=== PATIENT | female | born 1980 | race American Indian/Alaskan Native ===

== ENCOUNTER 2017-10-04 20:44 | Emergency (ER) | payer MEDICAID ==
[2017-10-04 20:46] VITALS: BMI 34.2
[2017-10-04 20:49] VITALS: BP 148/85; PULSE 100; RESP 16; TEMP 96.7; O2SAT 100
--- NOTE | 2017-10-04 20:58 | ED PDOC ---
Lower Extremity Pain/Injury Time Seen by Provider: 10/04/17 20:57 Chief Complaint (Nursing): Lower Extremity Problem/Injury Chief Complaint (Provider): Left foot pain History Per: Patient History/Exam Limitations: no limitations Onset/Duration Of Symptoms: Days Current Symptoms Are (Timing): Still Present Additional Complaint(s): 36 y/o female presents to the emergency department with a complaint of a right foot pain and swelling that radiates up to the knee whenever extra pressure is applied x3 weeks. Reports pain is on and off and occurs once in a while but worsened this time around. States she takes Ibuprofen with minimal relief. Denies any further medical complaints. Of note, patient had right foot surgery in 2008. Surgeon: Dr. Keith Herrera MD Past Medical History Reviewed: Historical Data, Nursing Documentation, Vital Signs Vital Signs: Last Vital Signs Temp 96.7 F L 10/04/17 20:46 Pulse 100 H 10/04/17 20:46 Resp 16 10/04/17 20:46 BP 148/85 10/04/17 20:46 Pulse Ox 100 10/04/17 20:46 - Medical History Other PMH: Lupus - Surgical History Surgical History: No Surg Hx - Family History Family History: States: No Known Family Hx - Home Medications Home Medications: Ambulatory Orders Medication Instructions Recorded [place]/Ca/Cu/mg/Mn/Sodium/Vit 1 tab PO BID 09/30/15 [Os-Parrish Ultra 600+D] Famotidine [Pepcid] 20 mg PO BID #30 tab 09/30/15 Montelukast [Singulair] 10 mg PO DAILY 09/30/15 Naproxen 500 mg PO BID #20 tab 09/30/15 Omeprazole Magnesium [Prilosec Otc] 20 mg PO DAILY 09/30/15 Oxycodone HCl/Acetaminophen 1 tab PO Q6 PRN #12 tab 09/30/15 [Percocet 325 mg-5 mg] Albuterol HFA [Ventolin HFA 90 1 - 2 puff IH Q6 PRN #1 inhaler 12/27/15 mcg/actuation (8 g)] Azithromycin [Zithromax Z-[place]] 250 mg PO DAILY #1 pkg 12/27/15 Promethazine HCl/Codeine 10 ml PO Q6 PRN #6 oz 12/27/15 [Prometh-Codein 6.25-10 mg/5 ml] Tramadol HCl [Ultram] 50 mg PO Q6 #15 tab 10/04/17 - Allergies Allergies/Adverse Reactions: Allergies Allergy/AdvReac Type Severity Reaction Status Date / Time No Known Allergies Allergy Verified 10/04/17 20:46 Review of Systems ROS Statement: Except As Marked, All Systems Reviewed And Found Negative (As per HPI, otherwise negative) Musculoskeletal: Positive for: Foot Pain (Right ) Physical Exam - Reviewed Nursing Documentation Reviewed: Yes Vital Signs Reviewed: Yes - Physical Exam Appears: Positive for: Non-toxic, No Acute Distress Head Exam: Positive for: ATRAUMATIC, NORMAL INSPECTION, NORMOCEPHALIC Skin: Positive for: Normal Color, Warm, Dry Extremity: Positive for: Normal ROM (Full range of motion of the left foot), Tenderness (To the malleolus bilaterally. Mild tenderness noted to the dorsum region of the foot. ), Capillary Refill (Good pulses. Neurovascularly intact. ) , Swelling (To the malleolus bilaterally). Negative for: Other (No color changes noted. No tenderness noted to the plantar region of the foot. No fibular head pain noted. ) Neurologic/Psych: Positive for: Alert, Oriented (x3) - ECG O2 Sat by Pulse Oximetry: 100 (RA) Pulse Ox Interpretation: Normal Medical Decision Making Medical Decision Making: Time: 2055 Initial impression: Left foot pain status post foot surgery Initial plan: --Right foot x-ray --Right ankle x-ray --Reevaluation Time: 2119 --X-ray read by me: shows surgical hardware (screw) with mild swelling to the foot but no acute injuries. podiatry consulted-pt to f.u in clinic tomorrow,pt placed nonweght bearing and crutches with GEOFF wrap and surgical shoe. Scribe Attestation: Documented by Marion Hernandez, acting as a scribe for Brittani Paige PA-C Provider Scribe Attestation: All medical record entries made by the Scribe were at my direction and personally dictated by me. I have reviewed the chart and agree that the record accurately reflects my personal performance of the history, physical exam, medical decision making, and the department course for this patient. I have also personally directed, reviewed, and agree with the discharge instructions and disposition. Disposition - Clinical Impression Clinical Impression: Ankle injury - Patient ED Disposition Is Patient to be Admitted: No Counseled Patient/Family Regarding: Studies Performed, Diagnosis, Need For Followup, Rx Given - Disposition Referrals: Podiatry Clinic [Outside] Disposition: Routine/Home Disposition Time: 21:27 Condition: STABLE Prescriptions: Tramadol HCl [Ultram] 50 mg PO Q6 #15 tab Instructions: Ankle Exercises (GEN), Tendinitis (ED) Forms: [facility] ED School/Work Excuse
--- NOTE | 2017-10-05 13:16 | RAD ---
PROCEDURE: Right Foot Radiographs. HISTORY: Unspecified injury COMPARISON: 06/21/2010 FINDINGS: BONES: No acute fracture. No evidence of orthopedic hardware failure. JOINTS: Normal. SOFT TISSUES: Normal. OTHER FINDINGS: None. IMPRESSION: No significant interval change compared to the prior examination(s).
--- NOTE | 2017-10-05 13:17 | RAD ---
PROCEDURE: Right Ankle Radiographs. HISTORY: Unspecified injury COMPARISON: 06/21/2010 FINDINGS: BONES: No acute fractures. No evidence of orthopedic hardware failure. JOINTS: Normal. No osteoarthritis. Ankle mortise maintained. Talar dome intact SOFT TISSUES: Normal. OTHER FINDINGS: None. IMPRESSION: No acute findings related to/accounting for the clinical presentation.No significant interval change compared to the prior examination(s).
== END 2017-10-04 22:25 | disposition home or self-care (01) ==
LOC: H.ER 20:44
DX: M25.571 Pain in right ankle and joints of right foot (principal); M32.9 Systemic lupus erythematosus, unspecified

== ENCOUNTER 2018-10-16 01:41 | Emergency (ER) | payer MEDICAID ==
[2018-10-16 01:41] VITALS: BMI 34.2
[2018-10-16 02:01] VITALS: RESP 18; O2SAT 98
[2018-10-16] MEDS ORDERED: Sodium Chloride 0.9% 1,000 ML IV STA (02:32)
--- NOTE | 2018-10-16 03:05 | ED PDOC ---
History of Present Illness History of Present Illness: 37 y/o female with history of lupus disease and chronic bronchitis presents to ER for evaluation of worsening flu-like symptoms onset 2 days. Patient reports symptoms started as achy legs and spread to whole body. She complains of associated headache, mild cough and light headedness. Patient received flu vaccine and states she takes her medication as prescribed. She denies any sick contact and reports allergies to sea food, cats and dogs. PMD: Steve Fernandez HPI: Influenza Time Seen by Provider: 10/16/18 02:04 Chief Complaint: Flu-like Symptoms Chief Complaint (Provider): Flu-like Symptoms History Per: Patient Exam Limitations: no limitations Onset/Duration Of Symptoms: Days (x2) Symptoms include: headache, bodyaches, cough, other (Light headedness) Past Medical History Reviewed: Historical Data, Nursing Documentation, Vital Signs Vital Signs: Last Vital Signs Temp 98.7 F 10/16/18 01:58 Pulse 97 H 10/16/18 01:58 Resp 18 10/16/18 01:58 BP 115/74 10/16/18 01:58 Pulse Ox 98 10/16/18 01:58 CEASAR Report Viewed: Yes - Medical History PMH: Bronchitis Other PMH: Lupus disease - Surgical History Surgical History: No Surg Hx - Family History Family History: States: Unknown Family Hx - Social History Current smoker - smoking cessation education provided: Yes Alcohol: None Drugs: Denies - Home Medications Home Medications: Ambulatory Orders Medication Instructions Recorded [place]/Ca/Cu/mg/Mn/Sodium/Vit 1 tab PO BID 09/30/15 [Os-Parrish Ultra 600+D] Famotidine [Pepcid] 20 mg PO BID #30 tab 09/30/15 Montelukast [Singulair] 10 mg PO DAILY 09/30/15 Naproxen 500 mg PO BID #20 tab 09/30/15 Omeprazole Magnesium [Prilosec Otc] 20 mg PO DAILY 09/30/15 Oxycodone HCl/Acetaminophen 1 tab PO Q6 PRN #12 tab 09/30/15 [Percocet 325 mg-5 mg] Albuterol HFA [Ventolin HFA 90 1 - 2 puff IH Q6 PRN #1 inhaler 12/27/15 mcg/actuation (8 g)] Azithromycin [Zithromax Z-[place]] 250 mg PO DAILY #1 pkg 12/27/15 Promethazine HCl/Codeine 10 ml PO Q6 PRN #6 oz 12/27/15 [Prometh-Codein 6.25-10 mg/5 ml] Tramadol HCl [Ultram] 50 mg PO Q6 #15 tab 10/04/17 - Allergies Allergies/Adverse Reactions: Allergies Allergy/AdvReac Type Severity Reaction Status Date / Time cat dander Allergy CONGESTION Verified 10/16/18 02:03 shellfish derived Allergy ANGIOEDEMA Verified 10/16/18 02:02 Review of Systems ROS Statement: Except As Marked, All Systems Reviewed And Found Negative Constitutional: Positive for: Other (Bodyache) Cardiovascular: Positive for: Light Headedness Respiratory: Positive for: Cough (mild) Neurological: Positive for: Headache Physical Exam - Reviewed Nursing Documentation Reviewed: Yes Vital Signs Reviewed: Yes - Physical Exam Appears: Positive for: Non-toxic, No Acute Distress Head Exam: Positive for: ATRAUMATIC, NORMOCEPHALIC Skin: Positive for: Normal Color, Warm, Dry Eye Exam: Positive for: Normal appearance, EOMI, PERRL ENT: Positive for: Normal ENT Inspection. Negative for: Pharyngeal Erythema Neck: Positive for: Normal, Painless ROM, Supple Cardiovascular/Chest: Positive for: Regular Rate, Rhythm. Negative for: Murmur Respiratory: Positive for: Normal Breath Sounds. Negative for: Wheezing Gastrointestinal/Abdominal: Positive for: Normal Exam, Soft. Negative for: Tenderness Back: Positive for: Normal Inspection. Negative for: L CVA Tenderness, R CVA Tenderness Extremity: Positive for: Normal ROM. Negative for: Pedal Edema, Deformity Neurologic/Psych: Positive for: Alert, Oriented (x3) Medical Decision Making Medical Decision Making: Time: 225 A/P: workup for viral illness vs. URI --Labs --CXR --IV fluids --Toradol --Reassess patient 0617 CXR shows no active disease. Labs are within normal limits. Influenza negative. Patient is stable for discharge home. Will give 2 days absence note for work. ----- Scribe Attestation: Documented by Myriam Smith, acting as a scribe for Kary Schmidt MD. Provider Scribe Attestation: All medical record entries made by the Scribe were at my direction and personally dictated by me. I have reviewed the chart and agree that the record accurately reflects my personal performance of the history, physical exam, medical decision making, and the department course for this patient. I have also personally directed, reviewed, and agree with the discharge instructions and di sposition. - Laboratory Results Result Diagrams: 10/16/18 02:51 10/16/18 02:51 - ECG O2 Sat by Pulse Oximetry: 98 (RA) Pulse Ox Interpretation: Normal Disposition - Clinical Impression Clinical Impression: Viral upper respiratory illness - Patient ED Disposition Is Patient to be Admitted: No - Disposition Disposition: Routine/Home Disposition Time: 06:17 Condition: STABLE Forms: [facility] (Cuban)
[2018-10-16 04:30] LABS: BASO # 0.1 K/uL (0.0-0.2); BASO % 0.8 % (0.0-2.0); EOS # 0.2 K/uL (0.0-0.7); EOS % 3.1 % (0.0-4.0); HEMOGLOBIN 13.4 g/dL (12.0-16.0); LYMPH # 2.9 K/uL (1.0-4.3); LYMPH % 44.9 % (20.0-40.0); MEAN CELL VOLUME 92.9 fl (81.0-99.0); MEAN CORPUSCULAR HEMOGLOBIN 30.1 pg (27.0-31.0); MEAN CORPUSCULAR HGB CONC 32.4 g/dL (33.0-37.0); MEAN PLATELET VOLUME 7.5 fl (7.2-11.7); MONO # 0.5 K/uL (0.0-0.8); MONO % 7.1 % (0.0-10.0); NEUT # 2.9 K/uL (1.8-7.0); NEUT % 44.1 % (50.0-75.0); NRBC % 0.1 % (0.0-0.0); RBC 4.46 Mil/uL (3.80-5.20); RED CELL DISTRIBUTION WIDTH 14.3 % (11.5-14.5); WHITE BLOOD COUNT 6.5 K/uL (4.8-10.8)
[2018-10-16 04:41] LABS: BLOOD UREA NITROGEN 9 mg/dl (7-17); CALCIUM 9.4 mg/dL (8.4-10.2); GFR NON-AFRICAN AMERICAN > 60
[2018-10-16 07:58] VITALS: BP 121/76; PULSE 87; TEMP 98.2
--- NOTE | 2018-10-16 15:54 | RAD ---
Date of service: 10/16/2018 HISTORY: Possible admission COMPARISON: Comparison chest 12/27/2015 FINDINGS: LUNGS: No active pulmonary disease. PLEURA: No significant pleural effusion identified, no pneumothorax apparent. CARDIOVASCULAR: No aortic atherosclerotic calcification present. Normal cardiac size. No pulmonary vascular congestion. OSSEOUS STRUCTURES: No significant abnormalities. VISUALIZED UPPER ABDOMEN: Normal. OTHER FINDINGS: None. IMPRESSION: No active disease.
== END 2018-10-16 06:15 | disposition home or self-care (01) ==
LOC: H.ER 01:41
DX: J06.9 Acute upper respiratory infection, unspecified (principal); M32.9 Systemic lupus erythematosus, unspecified
CPT/HCPCS: 71045; 80048; 81025; 85025; 87804; 96374; 99284; J1885; J7030